=== PATIENT | female | born 1985 | race African-American/Black ===

== ENCOUNTER 2019-07-31 11:28 | Emergency (ER) | payer OTHER ==
[2019-07-31 11:42] VITALS: BP 112/74
--- NOTE | 2019-07-31 11:51 | ER Document Report ---
HPI - HPI Time Seen by Provider: 07/31/19 11:44 Pain Level: 3 Notes: 33-year-old female patient presents emergency department chief complaint of cough that began this morning. Patient reports she has productive brown sputum. She reports history of bronchitis, thinks this might be similar. She denies any other symptoms. She has not had fever. - CONSTITUTIONAL Constitutional: DENIES: Fever, Chills - NEURO Neurology: REPORTS: Headache - RESPIRATORY Respiratory: REPORTS: Coughing Past Medical History - General Information source: Patient - Social History Smoking Status: Current Every Day Smoker Family History: Reviewed & Not Pertinent Patient has suicidal ideation: No Patient has homicidal ideation: No Pulmonary Medical History: Reports: Hx Bronchitis Vertical Provider Document - CONSTITUTIONAL Notes: PHYSICAL EXAMINATION: GENERAL: Well-appearing, well-nourished and in no acute distress. HEAD: Atraumatic, normocephalic. EYES: Pupils equal round extraocular movements intact, conjunctiva are normal. ENT: Nares patent, oropharynx clear, no erythema, no exudates, no tonsillar swelling. NECK: Normal range of motion, no cervical lymphadenopathy. LUNGS: No respiratory distress, lung sounds clear and equal bilaterally. Musculoskeletal: Normal range of motion NEUROLOGICAL: Normal speech, normal gait. PSYCH: Normal mood, normal affect. SKIN: Warm, Dry, normal turgor, no rashes or lesions noted. - INFECTION CONTROL TRAVEL OUTSIDE OF THE [place] IN LAST 30 DAYS: No Course - Re-evaluation Re-evalutation: Patient appears well, nontoxic, likely viral illness. Patient will be started on prednisone and Tessalon Perles. Patient is in agreements with this plan. Patient will follow-up with primary care if cough persists over the next 1 to 2 weeks. - Vital Signs Vital signs: Temp Pulse Resp BP Pulse Ox 98.0 F 93 16 112/74 97 07/31/19 11:39 07/31/19 11:39 07/31/19 11:39 07/31/19 11:39 07/31/19 11:39 Discharge - Discharge Clinical Impression: Upper respiratory infection Qualifiers: URI type: unspecified viral URI Qualified Code(s): J06.9 - Acute upper respiratory infection, unspecified Condition: Stable Disposition: HOME, SELF-CARE Additional Instructions: Your symptoms are most likely due to a viral infection it should resolve over the next 7-14 days. You should take [id number] guanfacine per bottle instructions to help thin the mucus. You may also use tylenol or ibuprofen as needed for aches and throat discomfort. Please be sure to drink plenty of fluids and get rest. Return to the emergency department he began having difficulty breathing, chest pain, persistent vomiting, or any other symptoms that are concerning to you. Prescriptions: Benzonatate [Tessalon Perles 100 mg Capsule] 1 - 2 tab PO [id number] PRN #40 capsule PRN Reason: Prednisone [Deltasone 20 mg Tablet] 3 tab PO DAILY 5 Days #15 tablet Forms: Return to Work Referrals: [facility] [Primary Care Provider] - Follow up as needed
== END 2019-07-31 11:53 | disposition home or self-care (01) ==
LOC: ER 11:28
DX: J06.9 Acute upper respiratory infection, unspecified (principal); B97.89 Other viral agents as the cause of diseases classified elsewhere; R05 Cough; R51 Headache; F17.200 Nicotine dependence, unspecified, uncomplicated
CPT/HCPCS: 99283